=== PATIENT | male | born 1990 | race Caucasian/White ===

== ENCOUNTER 2017-04-23 17:58 | Emergency (ER) | payer MEDICAID ==
[2017-04-23 18:12] VITALS: RESP 16; TEMP 98.6
--- NOTE | 2017-04-23 19:19 | EDPHY ---
H & P Stated Complaint: jumped [place] hit head on rock[place]lac, no loc Time Seen by Provider: 04/23/17 19:13 HPI/ROS: CHIEF COMPLAINT: Head injury and right elbow injury HISTORY OF PRESENT ILLNESS: 27-year-old male arrives via private vehicle, not a trauma activation, after he was on a rope swing in to [place], height greater than 3 feet, fell and impacted the occiput of his head against a rock with no loss of consciousness. He also his impacted his right elbow and has reproducible pain to the right elbow with range of motion. He is complaining of headache with no nausea or vomiting. No amnesia. No midline C-spine pain. He is in the ER with mother who states that he is "out of it". REVIEW OF SYSTEMS: A ten point review of systems was performed and is negative with the exception of the items mentioned in the HPI PAST MEDICAL/SURGICAL HISTORY: no anticoagulant use, no relevant medical/ surgical history SOCIAL HISTORY: denies alcohol use at time of incident PHYSICAL EXAM 1) GENERAL: Well-developed, well-nourished, alert and oriented. Appears to be in no acute distress. Answering questions appropriately. 2) HEAD: Normocephalic, 2.5 cm occipital laceration 3) HEENT: Pupils equal, round, reactive to light bilaterally. Negative Horners. Nasopharynx, oropharynx, clear. No deformity or angulation of nose. No septal hematoma. No rhinorrhea. No oral trauma. Ears bilaterally with normal tympanic membranes. No hemotympanum. No fluid or blood in the external auditory canal. No raccoon eyes. No Hinton sign. Teeth are normally aligned with no gross malocclusion, TMJ bilaterally nontender, facial bones nontender including the zygomatic arch, maxilla mandible. 4) NECK: No cervical collar is on. Posterior cervical spine is nontender, no stepoff, no effusion. Full range of motion which does not elicit any midline cervical spine pain, no posterior midline tenderness, no step-off. 5) LUNGS: Clear to auscultation bilaterally, no wheezes, no rhonchi, no retractions. No obvious signs of trauma. No chest wall pain. No flaring, no grunting. Moving symmetrically. No crepitus. 6) HEART: Regular rate and rhythm, 7) ABDOMEN: No guarding, no rebound, no focal tenderness, no peritoneal signs, no signs of trauma, no ecchymosis 8) MUSCULOSKELETAL: Right upper extremity: Right elbow abrasion and pain with range of motion including supination pronation. Proximally distally nontender. Moving all extremities, no focal areas of tenderness, no obvious trauma. 9) BACK: No midline vertebral tenderness, no fluctuance, no step-off, no obvious trauma, no visual or palpable abnormality. 10) SKIN: right elbow abrasion occipital laceration DIFFERENTIAL DIAGNOSIS: [ Not necessarily in any particular order, my differential diagnosis includes, but is not limited to, concussion, skull fracture, intraparenchymal contusion, subarachnoid, subdural and epidural hematoma. The patient understands that this diagnosis is provisional and can never be 100% accurate. - Personal History Current Tetanus/Diphtheria Vaccine: Unsure Current Tetanus Diphtheria and Acellular Pertussis (TDAP): Unsure - Medical/Surgical History Hx Asthma: No Hx Chronic Respiratory Disease: No Hx Diabetes: No Hx Cardiac Disease: No Hx Renal Disease: No Hx Cirrhosis: No Hx Alcoholism: No Hx HIV/AIDS: No Hx Splenectomy or Spleen Trauma: No Other PMH: denies - Social History Smoking Status: Current every day smoker Constitutional: Initial Vital Signs Temperature (C) 37.0 C 04/23/17 18:10 Heart Rate 90 04/23/17 18:10 Respiratory Rate 16 04/23/17 18:10 Blood Pressure 143/92 H 04/23/17 18:10 O2 Sat (%) 97 04/23/17 18:10 O2 Delivery Mode Room Air Allergies/Adverse Reactions: No Known Allergies Allergy (Unverified 08/24/16 20:43) Medical Decision Making - Diagnostics Imaging Results: Imaging Impressions Elbow X-Ray 04/23/17 19:42 Impression: Negative right elbow radiographs. Head CT 04/23/17 19:42 Impression: Negative noncontrast CT of the brain for acute traumatic injury. Results called to Cornelius Balbuena PA-C at 8:00 PM at the time of the interpretation. Images reviewed by myself Procedures: Procedure: Laceration repair. I explained the indications, risks and benefits for both laceration repair and anesthetic administration. Verbal consent was obtained from the patient and parent. The laceration on the occiput was cleaned, prepped, draped in normal sterile fashion and explored to its base. No foreign body seen, no foreign bodies palpated. There were no deep structures involved. No galea defects identified The wound was repaired with 5 joe. The wound repair was simple. The procedure was performed by myself. Patient has been informed that scarring will occur, although efforts have been made to minimize this. Procedure: Splint A sling splint was applied by ER contact lens technician. After application of the splint I returned and re-examined the patient. The splint was adequately immobilizing the joint and distal to the splint the patient's circulation and sensation were intact. Patient shows no signs of compartment syndrome. Was given orthopedic precautions. ED Course/Re-evaluation: Head CT ordered in this patient for trauma for the following indication: fall greater than 3 feet. 8:15 p.m.: Patient was re-evaluated with serial examinations. He is answering questions appropriately. Discussed his negative head CT imaging. We discussed 2nd impact syndrome usual customary head injury precautions instructions provided. His wound has been closed with joe which will need to be removed in 7 days. He has been given follow-up information for his head injury. Departure - Departure Disposition: Home, Routine, Self-Care Clinical Impression: Head injury Qualifiers: Encounter type: initial encounter Qualified Code(s): S09.90XA - Unspecified injury of head, initial encounter Occipital scalp laceration Qualifiers: Encounter type: initial encounter Qualified Code(s): S01.01XA - Laceration without foreign body of scalp, initial encounter Injury of right elbow Qualifiers: Encounter type: initial encounter Qualified Code(s): S59.901A - Unspecified injury of right elbow, initial encounter Abrasion of right elbow Qualifiers: Encounter type: initial encounter Qualified Code(s): S50.311A - Abrasion of right elbow, initial encounter Condition: Good Instructions: Head Injury (ED), Abrasion (ED) Additional Instructions: ALTHOUGH THERE IS NO EVIDENCE OF SERIOUS HEAD INJURY AT THIS TIME, DELAYED SIGNS CAN APPEAR 24 TO 48 HOURS AFTER INJURY. WE RECOMMEND THAT YOU DESIGNATE A FRIEND OR FAMILY MEMBER TO OBSERVE YOU OVER THE NEXT FEW DAYS TO ENSURE THAT YOUR CONDITION IS PROGRESSING NORMALLY. PLEASE RETURN TO THE EMERGENCY DEPARTMENT (ED) IMMEDIATELY IF YOU HAVE INCREASED HEADACHE, PERSISTENT HEADACHE , VOMITING, WEAKNESS, CONFUSION OR VISUAL PROBLEMS. WE RECOMMEND THAT YOU DO NOT RESUME CONTACT SPORTS OR ACTIVITIES THAT TAKE COORDINATION OR BALANCE SUCH SKIING OR RIDING A BICYCLE UNTIL CLEARED TO DO SO BY YOUR DOCTOR OR BY A NEUROLOGIST. Referrals: Return, to the ER in 7 days for staple removed [Other] - As per Instructions Lien Chiang MD [Medical Doctor] - 2-3 days, if not improved Quentin Mensah MD [Medical Doctor] - 2-3 days, call for appt. Stand Alone Forms: Work Excuse
[2017-04-23 21:11] VITALS: BP 125/77; PULSE 65; O2SAT 94
== END 2017-04-23 20:55 | disposition home or self-care (01) ==
PROC: 0HQ0XZZ Repair Scalp Skin, External Approach (ICD-10-PCS; principal; 2017-04-23)
DX: S01.01XA Laceration without foreign body of scalp, initial encounter (principal); S59.901A Unspecified injury of right elbow, initial encounter; S50.311A Abrasion of right elbow, initial encounter; F17.200 Nicotine dependence, unspecified, uncomplicated; W17.89XA Other fall from one level to another, initial encounter
CPT/HCPCS: A4565